=== PATIENT | female | born 1985 | race Caucasian/White ===

== ENCOUNTER 2017-06-05 10:52 | Emergency (ER) | payer OTHER ==
[2017-06-05 11:04] VITALS: BMI 22.8
--- NOTE | 2017-06-05 11:15 | PDOC ---
History of Present Illness - General History Source: Patient Exam Limitations: No Limitations - History of Present Illness Initial Comments: 06/05/17 14:23 The patient is a 31-year-old female, with no significant past medical history, who presents to the ED with one week of epigastric pain. The patient was seen in the ED at [facility] on Friday05/28/17 and was given protonics , which helped to alleviate the pain. She states her pain recurred on Friday and she went back to [facility] ED where she was discharged with Famotidine and Omeprazole. The patient presents to the ED today because the pain persists. She also reports associated fever, nausea and diarrhea; had 2 -3 episodes of loose, watery stool yesterday. Patient states her menstrual period should be coming some time this week. The patient denies any shortness of breath or chest pain. Denies any dysuria, frequency, urgency, or hesitancy. <Elisa Vivar - Last Filed: 06/05/17 14:23> <Gm Randhawa - Last Filed: 06/05/17 14:35> - General Chief Complaint: Pain, Acute Stated Complaint: ABD PAIN, WEAKNESS Time Seen by Provider: 06/05/17 11:15 Past History <Elisa Vivar - Last Filed: 06/05/17 14:23> - Suicide/Smoking/Psychosocial Hx Smoking History: Never smoked <Gm Randhawa - Last Filed: 06/05/17 14:35> - Past Medical History Allergies/Adverse Reactions: Allergies Allergy/AdvReac Type Severity Reaction Status Date / Time No Known Allergies Allergy Verified 06/05/17 11:02 Home Medications: Ambulatory Orders Famotidine [Pepcid -] 40 mg PO DAILY 06/05/17 Omeprazole 20 mg PO DAILY 06/05/17 Review of Systems - Review of Systems Able to Perform ROS?: Yes Comments:: 06/05/17 14:23 CONSTITUTIONAL: Reported: Fever No reported: Chills, Diaphoresis, Generalized Weakness, Malaise, Loss of Appetite HEENT: No reported: Rhinorrhea, Nasal Congestion, Throat Pain, Throat Swelling, Difficulty Swallowing, Mouth Swelling, Ear Pain, Eye Pain, Visual Changes CARDIOVASCULAR: No reported: Chest Pain, Syncope, Palpitations, Irregular Heart Rate, Lightheadedness, Peripheral Edema RESPIRATORY: No reported: Cough, Shortness of Breath, SOB with Exertion, Orthopnea, Wheezing , Stridor, Hemoptysis GASTROINTESTINAL: Reported: Abdominal Pain, Nausea, Diarrhea No reported: Abdominal Distension, Vomiting, Constipation, Melena, Hematochezia GENITOURINARY: No reported: Dysuria, Frequency, Urgency, Hesitancy, Flank Pain, Genital Pain MUSCULOSKELETAL: No reported: Myalgia, Arthralgia, Joint Swelling, Back pain, Neck Pain SKIN: No reported: Rash, Itching, Pallor HEMEATOLOGIC/IMMUNOLOGIC: No reported: Easy Bleeding, Easy Bruising, Lymphadenopathy, Frequent infections ENDOCRINE: No reported: Unexplained Weight Gain, Unexplained Weight Loss, Heat Intolerance , Cold Intolerance NEUROLOGIC: No reported: Headache, Focal Weakness, Paresthesias, Vertigo, Lightheadedness, Unsteady Gait, Seizure, Mental Status Changes, Incontinence PSYCHIATRIC: No reported: Anxiety, Depression <Elisa Vivar - Last Filed: 06/05/17 14:23> *Physical Exam - Vital Signs Last Vital Signs Temp Pulse Resp BP Pulse Ox 98.1 F 83 19 106/70 100 06/05/17 11:02 06/05/17 11:02 06/05/17 11:02 06/05/17 11:02 06/05/17 11:02 - Physical Exam Comments: 06/05/17 14:23 GENERAL: The patient is awake, alert, and fully oriented, Nontoxic - in no acute distress. HEAD: Normocephalic, atraumatic. EYES: extraocular movements intact, sclera anicteric, conjunctiva clear. ENT: Normal voice, Moist mucous membranes. NECK: Normal range of motion, supple LUNGS: Breath sounds equal, clear to auscultation bilaterally. No wheezes, no rhonchi, no rales. HEART: Regular rate and rhythm, without murmur, rub or gallop. ABDOMEN: (+)Mild epigastric tenderness. Soft, normoactive bowel sounds. No guarding, no rebound.No CVA tenderness EXTREMITIES: Normal range of motion, no edema. No clubbing or cyanosis. No cords, erythema, or tenderness. NEUROLOGICAL: No facial assymetry, Normal speech, PSYCH: Normal mood, normal affect. SKIN: Warm, Dry, normal turgor, <Elisa Vivar - Last Filed: 06/05/17 14:23> - Vital Signs Last Vital Signs Temp Pulse Resp BP Pulse Ox 98.1 F 83 19 106/70 100 06/05/17 11:02 06/05/17 11:02 06/05/17 11:02 06/05/17 11:02 06/05/17 11:02 <Gm Randhawa - Last Filed: 06/05/17 14:35> ED Treatment Course - LABORATORY CBC & Chemistry Diagram: 06/05/17 12:04 06/05/17 12:04 - ADDITIONAL ORDERS Additional order review: Laboratory Results 06/05/17 06/05/17 12:04 12:03 Sodium 137 Potassium 3.8 Chloride 105 Carbon Dioxide 24 Anion Gap 8 BUN 14 Creatinine 0.7 Creat Clearance w eGFR > 60 Random Glucose 90 Calcium 8.4 L Total Bilirubin 0.2 AST 11 L ALT 19 Alkaline Phosphatase 54 Total Protein 7.6 Albumin 4.0 Lipase 216 Urine Color Yellow Urine Appearance Clear Urine pH 5.0 Ur Specific [place] 1.029 Urine Protein Negative Urine Glucose (UA) Negative Urine Ketones Negative Urine Blood Negative Urine Nitrite Negative Urine Bilirubin Negative Urine Urobilinogen Negative Ur Leukocyte Esterase Negative Urine HCG, Qual Negative 06/05/17 12:04 RBC 4.55 MCV 81.2 MCHC 32.5 RDW 16.0 H MPV 8.4 Neutrophils % 77.5 Lymphocytes % 11.4 Monocytes % 6.9 Eosinophils % 4.2 Basophils % 0.0 - Medications Given in the ED: ED Medications Discontinued Medications Generic Name Dose Route Start Last Admin Trade Name Freq PRN Reason Stop Dose Admin Al Hydroxide/Mg Hydroxide 30 ml 06/05/17 11:55 06/05/17 12:29 Mylanta Suspension - PO 06/05/17 11:56 30 ml ONCE ONE Administration Pantoprazole Sodium 40 mg/ 100 mls @ 200 mls/hr 06/05/17 11:55 06/05/17 12:30 Sodium Chloride IVPB 06/05/17 12:24 200 mls/hr ONCE ONE Administration <Elisa Vivar - Last Filed: 06/05/17 14:23> - LABORATORY CBC & Chemistry Diagram: 06/05/17 12:04 06/05/17 12:04 <Gm Randhawa - Last Filed: 06/05/17 14:35> Medical Decision Making - Medical Decision Making 06/05/17 11:57 31y F no konwn pmhx presents with complaint of epigastric pain. The patient states the pain has been intermittent since last friday, went to the ED there and was prescribed protonix, the pain recurred friday and she went back and had her meds changed. pt states she still has pain, but also endroses subjective fevers, and few episodes of diarrhea. on exam pt is well appearing in no distress. abd soft without any guarding and minmal tendenress suspect gerd, but possible gastroenteritis will give maalox,protonix 06/05/17 14:27 pt feeling improved will dc with PMD fu will give her maalox in additon to her current meds will have her fu with PMD I discussed the physical exam findings, ancillary test results and final diagnoses with the patient. I answered all of the patient's questions. The patient was satisfied with the care received and felt comfortable with the discharge plan and treatment plan. The patient will call their primary care physician within 24 hours to arrange follow-up and will return to the Emergency Department with any new, persistent or worsening symptoms. <Gm Randhawa - Last Filed: 06/05/17 14:35> *DC/Admit/Observation/Transfer - Attestations Scribe Attestion: 06/05/17 14:24 Documentation prepared by Elisa Vivar, acting as medical collections representative for Gm Randhawa MD. <Elisa Vivar - Last Filed: 06/05/17 14:23> - Discharge Dispostion Admit: No <Gm Randhawa - Last Filed: 06/05/17 14:35> Diagnosis at time of Disposition: GERD (gastroesophageal reflux disease) Qualifiers: Esophagitis presence: without esophagitis Qualified Code(s): K21.9 - Gastro- esophageal reflux disease without esophagitis - Discharge Dispostion Disposition: HOME Condition at time of disposition: Improved - Referrals Referrals: Venkatesh Purdy MD [Staff Physician] - - Patient Instructions Printed Discharge Instructions: DI for Gastroesophageal Reflux Disease (GERD) Additional Instructions: Regrese al departamento de emergencia de inmediato con CUALQUIER sntoma nuevo, persistente o que empeora, incluidos los lorraine abdominales recurrentes, las fiebres, los escalofros, la incapacidad de tolerar la ingesta oral o cualquier otra inquietud. Mantngase alejado del alcohol, las comidas picantes, la cafena y los alimentos cidos / amargos. [place] maalox si tiene quema para alivio. Contine usando zantac todas las noches karen elida semana. DEBE llamar y hacer un seguimiento con blake mdico y gastroenterlogo dentro de los 5 cardenas para elida evaluacin ms profunda de bebeto sntomas. Blake visita al departamento de emergencia no est completa sin un seguimiento con blake mdico para la reevaluacin. Los resultados fueron discutidos con usted. Asegrese de que blake mdico revise los resultados de blake evaluacin de emergencia. Return to the emergency department immediately with ANY new, persistent or worsening symptoms including any recurrent abdominal pain, fevers, chills, inability to tolerate oral intake or any other concerns. Stay away from alcohol, spicy foods, caffeine, acidic/sour foods. Take maalox if you have burning for relief. Continue using zantac every night for one week. You MUST call and follow up with your doctor and teacher drama within 5 days for further evaluation of your symptoms. Your emergency department visit is not complete without a followup with your doctor for reevaluation. Results were discussed with you. Please make sure your doctor reviews the results of your emergency evaluation. Print Language: AZERI
[2017-06-05] MEDS ORDERED: MAG HYDROX/AL HYDROX/SIMETH -MYLANTA- ORAL SUSPENSION PO ONE (11:55)
[2017-06-05] MEDS ORDERED: PANTOPRAZOLE SODIUM 40 MG in SODIUM CHLORIDE 100 ML IVPB ONE (11:55)
[2017-06-05] MEDS ORDERED: PANTOPRAZOLE SODIUM 40 MG VIAL ONE (12:18)
[2017-06-05] MEDS ORDERED: MAG HYDROX/AL HYDROX/SIMETH 30 ML UNIT-DOSE CUP ONE (12:18)
[2017-06-05 12:23] LABS: EOS % 4.2 % (0-4.5); HEMATOCRIT 36.9 % (32.4-45.2); LYMPH % 11.4 % (8-40); MCH 26.4 pg (25.7-33.7); MCHC 32.5 g/dl (32.0-36.0); MEAN CELL VOLUME 81.2 fl (80-96); MEAN PLT VOLUME 8.4 fl (7.5-11.1); MONO % 6.9 % (3.8-10.2); NEUT % 77.5 % (42.8-82.8); PLATELET COUNT 250 K/MM3 (134-434); RBC 4.55 M/mm3 (3.60-5.2)
[2017-06-05 12:40] LABS: URINE APPEARANCE CLEAR; URINE BILIRUBIN NEGATIVE (NEGATIVE); URINE BLOOD NEGATIVE (NEGATIVE); URINE COLOR YELLOW; URINE GLUCOSE (UA) NEGATIVE (NEGATIVE); URINE KETONE NEGATIVE (NEGATIVE); URINE LEUK ESTERASE NEGATIVE (NEGATIVE); URINE NITRITE NEGATIVE (NEGATIVE); URINE PROTEIN NEGATIVE (NEGATIVE); URINE UROBILINOGEN NEGATIVE mg/dL (0.2-1.0)
[2017-06-05 12:44] LABS: HCG,QUALITATIVE URINE NEGATIVE
[2017-06-05 12:48] LABS: ALK PHOS 54 U/L (45-117); ANION GAP 8 (8-16); BILIRUBIN,TOTAL 0.2 mg/dL (0.2-1.0); BLOOD UREA NITROGEN 14 mg/dL (7-18); CALCIUM 8.4 mg/dL (8.5-10.1); CHLORIDE 105 mmol/L (98-107); CO2 24 mmol/L (21-32); CREATININE 0.7 mg/dL (0.55-1.02); GLUCOSE,RANDOM 90 mg/dL (74-106); POTASSIUM 3.8 mmol/L (3.5-5.1); SGOT/AST 11 U/L (15-37); SGPT/ALT 19 U/L (12-78); SODIUM 137 mmol/L (136-145); TOT PROT 7.6 g/dl (6.4-8.2)
[2017-06-05 12:49] LABS: LIPASE 216 U/L (73-393)
[2017-06-05 15:01] VITALS: BP 98/63; PULSE 76; TEMP 98.6
== END 2017-06-05 15:01 | disposition home or self-care (01) ==
LOC: JER 10:52
PROC: 3E033GC Introduction of Other Therapeutic Substance into Peripheral Vein, Percutaneous Approach (ICD-10-PCS; principal; 2017-06-05)
DX: K21.9 Gastro-esophageal reflux disease without esophagitis (principal)
CPT/HCPCS: 36415; 80053; 81003; 83690; 84703; 85025; 99283-25